=== PATIENT | female | born 1975 | race Caucasian/White ===

== ENCOUNTER 2023-06-22 12:15 | Emergency (ER) | payer MEDICAID ==
[~2023-06-22] VITALS: Ht 165.1 cm; Wt 73.2 kg
[2023-06-22 12:19] VITALS: BP 144/85; PULSE 102; TEMP 98; O2SAT 99
[2023-06-22] MEDS ORDERED: morphine sulfate IR 15MG tablet PO STA (13:18)
[2023-06-22] MEDS ORDERED: oxyCODONE IR 5mg (immed. release) tablet PO ONE ×2 (13:30)
[2023-06-22] MEDS ORDERED: morphine ER 30mg tablet PO ONE (13:30)
[2023-06-22 13:57] VITALS: RESP 17
[2023-06-22] MEDS ORDERED: OXYcodone (OXYCONTIN) Ext Release 15 MG TAB.SR.12H PO SCH (20:00)
[2023-06-23] MEDS ORDERED: OXYC-145 PO ×3 (10:27→12:33)
== END 2023-06-22 15:26 | disposition home or self-care (01) ==
LOC: ER 12:16
DX: M54.9 Dorsalgia, unspecified (principal); G89.29 Other chronic pain
CPT/HCPCS: 99284

== ENCOUNTER 2023-06-23 04:30 | Emergency (ER) | payer MEDICAID ==
[~2023-06-23] VITALS: Ht 165.1 cm; Wt 72.8 kg
[2023-06-23] MEDS ORDERED: ketorolac trometh inj. 60 MG/2 ML VIAL IM ONE (10:20)
[2023-06-23] MEDS ORDERED: diazepam inj 5 MG/ML inj. IM ONE (10:20)
[2023-06-23] MEDS ORDERED: ketorolac trometh. 30mg/ml inj. IM ONE (10:25)
[2023-06-23] MEDS ORDERED: OXYC-145 PO ×3 (10:27→12:33)
[2023-06-23 11:00] VITALS: BP 120/80; PULSE 78; RESP 16; TEMP 98; O2SAT 98
== END 2023-06-23 11:03 | disposition home or self-care (01) ==
LOC: ER 04:30
DX: M54.9 Dorsalgia, unspecified (principal)
CPT/HCPCS: 96372; 99284; J1885; J3360